=== PATIENT | female | born 1990 | race Caucasian/White ===

== ENCOUNTER 2018-04-23 19:37 | Emergency (ER) | payer OTHER ==
[~2018-04-23] VITALS: Ht 177.8 cm; Wt 65.8 kg
--- NOTE | 2018-04-23 20:48 | NUR ---
PT BBSELF FROM HOME C/C INTERMITTENT HEAVY TO LIGHT VB TODAY. PT STATES THE BLEEDING HAS NOW STOPPED. PT STATES SHE IS 11 WKS PREGANNT, A0, LMP 02/09/18 DENIES ANY ABD PAIN, NAUSEA NO VOMITING. VSS. PT IS AAOX4. SKIN WNL. PT PLACED ON MONITOR AND POX. PT SAFETY AND COMFORT MEASURES IN PLACE. BEDSIDE FOR EVAL.
--- NOTE | 2018-04-23 20:55 | NUR ---
PT REFUSED IV, BUT OKAY WITH SNACK BAR CASHIER DRAWING BLOOD. MADE AWARE. WARM BLANKET PROVIDED TO PT. SNACK BAR CASHIER BEDSIDE FOR BLOOD DRAW.
[2018-04-23 21:08] LABS: BASOPHILS # (AUTO) 0.2 /CMM (0.0-0.2); BASOPHILS % (AUTO) 1.7 % (0.0-2.0); EOSINOPHILS % (AUTO) 7.6 % (0.0-6.0); HEMATOCRIT 38 % (33-45); HEMOGLOBIN 13.3 g/dL (11.5-14.8); LYMPHOCYTES # (AUTO) 1.9 /CMM (0.8-4.8); LYMPHOCYTES % (AUTO) 17.1 % (20.0-44.0); MEAN CORPUSCULAR HEMOGLOBIN 33 PG (26.0-33.0); MEAN CORPUSCULAR HGB CONC 35 g/dl (31.0-36.0); MEAN CORPUSCULAR VOLUME 93 fL (82-100); MONOCYTES # (AUTO) 0.6 /CMM (0.1-1.30); MONOCYTES % (AUTO) 5.8 % (2.0-12.0); NEUTROPHILS # (AUTO) 7.5 /CMM (1.8-8.9); NEUTROPHILS % (AUTO) 67.8 % (43.0-81.0); PLATELET COUNT (AUTO) 237 /CMM (150-450); RDW COEFFICIENT OF VARIATION 11.3 (11.5-15.0); RED BLOOD CELL COUNT(AUTO) 4.05 MIL/uL (4.0-5.2)
[2018-04-23 21:10] LABS: APPEARANCE,URINE Clear (CLEAR); BILIRUBIN,URINE Negative (NEGATIVE); BLOOD, URINE Moderate Ery/uL (NEGATIVE); COLOR,URINE Yellow (YELLOW); KETONES,URINE Negative (NEGATIVE); LEUKOCYTE ESTERASE ,URINE Negative (NEGATIVE); NITRITE, URINE Negative (NEGATIVE); PROTEIN,URINE Negative (NEGATIVE); UGLUCOSE Negative (NEGATIVE); UROBILINOGEN,URINE 0.2 EU/dL (0.2)
--- NOTE | 2018-04-23 21:10 | NUR ---
US TECH BEDSIDE
[2018-04-23 21:12] LABS: BACTERIA,URINE Few /HPF (None Seen); SQUAMOUS EPITHELIAL CELL,UR Few /HPF (None Seen); URINE AMORPHOUS URATE Few /HPF (None Seen)
[2018-04-23 21:18] LABS: CALCIUM, SERUM 8.8 mg/dL (8.5-10.1); CREATININE 0.8 mg/dL (0.6-1.3); POTASSIUM 3.5 mmol/L (3.5-5.1)
[2018-04-23 21:22] LABS: INR 0.88 (0.85-1.15)
[2018-04-23 21:45] LABS: ALBUMIN 3.7 g/dL (3.4-5.0); BILIRUBIN,DIRECT 0.1 mg/dL (0.0-0.2); BILIRUBIN,TOTAL 0.2 mg/dL (0.2-1.0); TOTAL PROTEIN, SERUM 7.3 g/dL (6.4-8.2)
[2018-04-23 22:44] VITALS: BP 127/80
--- NOTE | 2018-04-23 22:44 | NUR ---
Patient discharged to home in stable condition. Written and verbal after care instructions given. Patient verbalizes understanding of instruction. VSS UPON DISCHARGE
== END 2018-04-23 22:45 | disposition home or self-care (01) ==
LOC: ER 19:38
DX: O20.0 Threatened abortion (principal); Z3A.11 11 weeks gestation of pregnancy
CPT/HCPCS: 36415; 76856-TC; 80048-TC; 80076-TC; 81000-TC; 84702-TC; 85025-TC; 85730-TC; A4606; Z7610